=== PATIENT | female | born 1985 | race American Indian/Alaskan Native ===

== ENCOUNTER 2018-11-30 14:18 | Emergency (ER) | payer MEDICAID ==
[2018-11-30 14:31] VITALS: BP 115/62
--- NOTE | 2018-11-30 14:51 | Emergency Department Report ---
Chief Complaint: Urogenital-Female Stated Complaint: PAINFUL BUMP ON VAGINAL - HPI History of Present Illness: mse completed - Exam Vital Signs: Vital Signs 11/30/18 14:31 Temperature 98.5 F Pulse Rate 86 Respiratory 18 Rate Blood Pressure 115/62 [Right] O2 Sat by Pulse 99 Oximetry MSE screening note: Focused history and physical exam performed. Due to findings the following was ordered: ED Disposition for MSE Condition: Stable
[2018-11-30 15:27] LABS: Bacteria,Urine 2+ /HPF (Negative); Bilirubin,Urine NEG (Negative); Blood,Urine NEG (Negative); Color,Urine Yellow (Yellow); Protein,Urine <15 mg/dL mg/dL (Negative)
[2018-11-30 15:28] LABS: HCG Qualitative,Urine Negative (Negative)
== END 2018-11-30 16:13 | disposition left against medical advice (07) ==
LOC: ED 14:18
DX: N90.7 Vulvar cyst (principal); Z53.21 Procedure and treatment not carried out due to patient leaving prior to being seen by health care provider
CPT/HCPCS: 81001; 81025

== ENCOUNTER 2018-11-30 18:26 | Emergency (ER) | payer MEDICAID ==
[2018-11-30 18:29] VITALS: BP 116/68
--- NOTE | 2018-11-30 18:31 | Emergency Department Report ---
Chief Complaint: Urogenital-Female Stated Complaint: PAINFUL BUMP ON VAGINA Time Seen by Provider: 11/30/18 18:30 - HPI History of Present Illness: BUMP ON VAGINA MSE COMPLETED HERE EARLIER- SEE OTHER RECORD - Exam Vital Signs: Vital Signs 11/30/18 18:29 Temperature 98.8 F Pulse Rate 81 Respiratory 18 Rate Blood Pressure 116/68 [Right] O2 Sat by Pulse 99 Oximetry MSE screening note: Focused history and physical exam performed. Due to findings the following was ordered: ED Disposition for MSE Condition: Stable
--- NOTE | 2018-11-30 22:22 | Emergency Department Report ---
ED Female HPI - General Chief complaint: Urogenital-Female Stated complaint: PAINFUL BUMP ON VAGINA Time Seen by Provider: 11/30/18 18:30 Source: patient Mode of arrival: Ambulatory Limitations: No Limitations - History of Present Illness Initial comments: This is a 33-year-old -[place] female who presents with a painful pop the labia for 2 days. Patient states he feels like a fever blister and there is clear discharge. Patient states she had a head intercourse in over 6 years. She is concerned of possible STD. She denies vaginal discharge, vaginal bleeding, urinary frequency, urinary urgency, dysuria, pelvic pain, or low back pain. MD Complaint: possible STD Onset/Timin -: days(s) Location: labia Radiation: non-radiating Severity: mild Severity scale (0 -10): 2 Quality: aching Consistency: intermittent Improves with: none Worsens with: none Are you Now?: No (depo vera) Associated Symptoms: denies other symptoms - Related Data Sexually active: No : 5 Para: 5 A: 0 Previous Rx's Medication Instructions Recorded Last Taken Type Valacyclovir HCl [Valtrex] 1,000 mg PO BID #20 tablet 11/30/18 Unknown Rx Allergies Allergy/AdvReac Type Severity Reaction Status Date / Time No Known Allergies Allergy Verified 11/30/18 14:42 ED Review of Systems ROS: Stated complaint: PAINFUL BUMP ON VAGINA Other details as noted in HPI Constitutional: denies: chills, fever Respiratory: denies: cough, shortness of breath, wheezing Cardiovascular: denies: chest pain, palpitations Gastrointestinal: denies: abdominal pain, nausea, diarrhea Skin: lesions (blister to left labia). denies: rash Neurological: denies: headache, weakness, paresthesias Psychiatric: denies: anxiety, depression ED Past Medical Hx - Past Medical History Previous Medical History?: No - Surgical History Past Surgical History?: No - Social History Smoking Status: Never Smoker Substance Use Type: None - Medications Home Medications: Home Medications Medication Instructions Recorded Confirmed Last Taken Type Valacyclovir HCl [Valtrex] 1,000 mg PO BID #20 tablet 11/30/18 Unknown Rx ED Physical Exam - General Limitations: No Limitations General appearance: alert, in no apparent distress, obese - Respiratory Respiratory exam: Present: normal lung sounds bilaterally. Absent: respiratory distress - Cardiovascular Cardiovascular Exam: Present: regular rate, normal rhythm. Absent: systolic murmur, diastolic murmur, rubs, gallop - GI/Abdominal GI/Abdominal exam: Present: soft, normal bowel sounds. Absent: distended, tenderness, guarding, rebound, rigid, organomegaly, mass, bruit, pulsatile mass - Neurological Exam Neurological exam: Present: alert, oriented X3 - Psychiatric Psychiatric exam: Present: normal affect, normal mood - Skin Skin exam: Present: warm, dry, intact, normal color, other (vesicular lesion to right labia, tenderness). Absent: rash, cyanosis, diaphoretic, erythema, urticaria, petechiae, pallor, abrasion, ecchymosis ED Course Vital Signs 11/30/18 18:29 Temperature 98.8 F Pulse Rate 81 Respiratory 18 Rate Blood Pressure 116/68 [Right] O2 Sat by Pulse 99 Oximetry ED Medical Decision Making - Medical Decision Making Patient was examined by me. Vitals are stable and in no acute distress. No labs ordered. Findings this is herpes simplex type II. Start valacyclovir. Patient instructed to take Tylenol, naproxen, ibuprofen for pain. Follow-up with night clerk auditor or PCP for full STD screening. Discharged home in stable condition. Discussed prevention options. F/U with PCP or Health Department. Critical care attestation.: If time is entered above; I have spent that time in minutes in the direct care of this critically ill patient, excluding procedure time. 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 Follow-up with a primary care provider or night clerk auditor for further STD screening. Continue safe sexual intercourse. Follow up with Primary Care Provider or health department. Prescriptions: Valacyclovir HCl [Valtrex] 1,000 mg PO BID #20 tablet Referrals: [facility] [Other] - 3-5 Days [facility] [Provider Group] - 3-5 Days [facility] [Provider Group] - 3-5 Days Time of Disposition: 22:45
== END 2018-11-30 22:52 | disposition home or self-care (01) ==
LOC: ED 18:26
DX: B00.9 Herpesviral infection, unspecified (principal)
CPT/HCPCS: 81001; 81025; 99282